=== PATIENT | female | born 1990 | race Two or more races ===

== ENCOUNTER 2025-01-24 16:34 | Emergency (ER) | payer OTHER ==
[~2025-01-24] VITALS: Ht 149.9 cm; Wt 52.3 kg
[2025-01-24 21:32] VITALS: TEMP 97.7
[2025-01-24] MEDS ORDERED: IBUP-1492 PO (21:33)
[2025-01-24] MEDS ORDERED: CYCL-448 PO (21:33)
[2025-01-24] MEDS: CYCLOBENZAPRINE HCL 10 MG TABLET PO ONE (21:58)
[2025-01-24] MEDS: KETOROLAC TROMETHAMINE 30 MG/ML VIAL IM ONE (21:58)
[2025-01-24 22:12] VITALS: BP 115/86; PULSE 79; RESP 16; O2SAT 98
== END 2025-01-24 22:20 | disposition home or self-care (01) ==
LOC: EMS 16:34
DX: S09.90XA Unspecified injury of head, initial encounter (principal); F12.90 Cannabis use, unspecified, uncomplicated; Z88.5 Allergy status to narcotic agent; Z98.890 Other specified postprocedural states; V43.52XA Car driver injured in collision with other type car in traffic accident, initial encounter; Y93.89 Activity, other specified; Y92.410 Unspecified street and highway as the place of occurrence of the external cause; Y99.8 Other external cause status
CPT/HCPCS: 99285; 70450; 84703; 72125; 96372; J1885